=== PATIENT | female | born 1940 | race Caucasian/White ===

== ENCOUNTER 2022-10-22 11:41 | Inpatient (IN) | payer MEDICARE, OTHER ==
[~2022-10-22] VITALS: Ht 170.2 cm; Wt 78.5 kg
[2022-10-22] MEDS ORDERED: CRAN500T PO (12:10)
[2022-10-22] MEDS ORDERED: FAMO40TA71 PO (12:10)
[2022-10-22] MEDS ORDERED: LEVO50TA PO (12:10)
[2022-10-22] MEDS ORDERED: BUPR300T52 PO (12:10)
[2022-10-22] MEDS ORDERED: NORT10CA PO (12:10)
[2022-10-22] MEDS ORDERED: MIRA25TA PO (12:10)
[2022-10-22] MEDS ORDERED: DULO30CA52 PO (12:10)
[2022-10-22 12:41] LABS: HEMATOCRIT 42.2 % (31.2-41.9); MEAN CORPUSCULAR HEMOGLOBIN 30.2 uug (24.7-32.8); MEAN CORPUSCULAR VOLUME 91.5 fL (75.5-95.3); PLATELET COUNT (AUTO) 402 K/uL (179-408)
[2022-10-22 13:09] LABS: CARBON DIOXIDE 28 mmol/L (21-32); CHLORIDE 103 mmol/L (98-107); GLUCOSE 98 mg/dL (74-106); POTASSIUM 4.2 mmol/L (3.5-5.1); UREA NITROGEN, BLOOD 26 mg/dL (7-18)
[2022-10-22 13:14] LABS: ACETAMINOPHEN < 2.0 ug/mL (10-30); ALANINE AMINOTRANSFERASE 17 U/L (14-59); ALKALINE PHOSPHATASE 100 U/L (50-136); ASPARTATE AMINOTRANSFERASE 9 U/L (15-37); BILIRUBIN,DIRECT 0.2 mg/dL (0.0-0.2); BILIRUBIN,TOTAL 0.5 mg/dL (0.2-1.0); TOTAL PROTEIN, SERUM 7.6 g/dL (6.4-8.2)
[2022-10-22 13:15] LABS: ETHANOL < 3 MG/DL (0-0)
[2022-10-22 14:20] LABS: *BILIRUBIN,URIN NEGATIVE (NEGATIVE); *BLOOD, URINE NEGATIVE (NEGATIVE); *CLARITY,URINE CLEAR (CLEAR); *COLOR,URINE YELLOW (YELLOW); *KETONES,URINE NEGATIVE (NEGATIVE); *UROBILINOGEN,URINE 0.2 E.U./dl (NORMAL); LEUKOCYTE ESTERASE ,URINE TRACE (NEGATIVE); NITRITE, URINE NEGATIVE (NEGATIVE); UGLUCOSE NEGATIVE (NEGATIVE)
[2022-10-22 14:31] LABS: *AMPHETAMINE, URINE NEGATIVE (NEGATIVE); *CANNABINOID, URINE NEGATIVE (NEGATIVE); *COCCAINE, URINE NEGATIVE (NEGATIVE); *PHENCYCLIDINE SCREEN,URINE NEGATIVE (NEGATIVE)
--- NOTE | 2022-10-22 16:37 | NUR ---
Called report to [facility]. Going to [address]. Waiting on Covid result before transferring pt.
[2022-10-22 16:45] VITALS: BP 142/77
[2022-10-22] MEDS ORDERED: MAG HYDROX/AL HYDROX/SIMETH 30 ML LIQUID UDC PO PRN (17:30)
[2022-10-22] MEDS ORDERED: LORAZEPAM 1 MG TABLET PO PRN (17:30)
[2022-10-22] MEDS ORDERED: MAGNESIUM HYDROXIDE 30 ML LIQUID UDC PO PRN (17:30)
[2022-10-22] MEDS ORDERED: ZOLPIDEM 5 MG TABLET PO PRN (17:30)
[2022-10-22] MEDS ORDERED: ACETAMINOPHEN 325 MG TABLET PO PRN (17:30)
[2022-10-22 17:50] LABS: BACTERIA,URINE MANY /HPF (NONE SEEN); RBC,URINE NONE SEEN /HPF (0-3); SQUAMOUS EPITHELIAL CELL,UR MANY /HPF (NONE SEEN)
[2022-10-22] MEDS ORDERED: BLOOD SUGAR DIAGNOSTIC 1 EACH STRIP VI ONE (18:00)
--- NOTE | 2022-10-22 18:00 | NUR ---
Admitted a 81 years old female from ER with history of Depression. Patient is on voluntary status. Patient arrived in a wheel chair accompanied by FURNITURE STAINER. Initial report given by Jens ZAMORA. On admission patient was cooperative to physical assessment and vital signs. Skin body assessment revealed no significant skin integrity breakdown. Patient is in Regular Diet. Patient ambulates independently, lower extremities with functional limits, steady gait. Upon face to face, patient is alert to person and place, depressed, sociable, cooperative. Patient denies any suicidal or homicidal ideations nor any hallucinations or delusions. Patient was also offered brief orientation to unit rules and policies and given a copy of patient's rights handbook. Patient belongings were accounted and contrabands removed. Psychiatrist Tonie and Medical physician Mandi were informed and orders were carried out. Patient is currently free from pain or any discomfort. Reassurance given. Fall and safety precautions implemented.
--- NOTE | 2022-10-22 20:30 | NUR ---
RECEIVED PATIENT IN HER ROOM SITTING IN HER BED. SHE IS NOTED A/O X4. SHE IS ABLE TO AMBULATE WITH STEADY GAIT. SHE IS ABLE TO VERBALIZED HER FEELINGS. PATIENT NOTED WITH LOW MOOD AND HER AFFECT IS BLUNTED. SHE IS NOTED PREOCCUPIED, WORRIED AND SOMEWHAT IRRITABLE THAT SHE CAN'T HAVE SOME OF HER STUFF D/T NOT PERMITTED IN THE UNIT FOR SAFETY REASONS. HOWEVER, SHE WAS GIVEN SOME OF HER BOOKS TO READ AND SHE WAS ALLOWED TO WEAR HER OWN NIGHT GOWN. PATIENT STATED, "I AM HERE BECAUSE MY FAMILY IS SAYING THAT I NEED TO HAVE MY MEDICATIONS CHECKS. I WANT TO HAVE MY MEDICATION CHECKS. I FEEL SAD BUT I DON'T FEEL I WANT TO OR HARM MYSELF. I HERE VOICES AND THE VOICES ARE SINGING IN THE BACK OF MY HEAD". PATIENT IS HERE VOLUNTARY. SHE DENIED SI/HI. SHE IS ABLE TO VERBALLY CFS. SHE IS REASSURED FOR HER SAFETY. SAFETY AND FALL PRECAUTIONS ARE IN PLACE. ALL HER NEEDS ARE MET. HER V/S ARE STABLE. SHE WAS GIVEN PO FLUIDS AND SNACKS. WILL CONTINUE TO MONITOR,
[2022-10-22 20:38] VITALS: BP 147/82
--- NOTE | 2022-10-22 21:45 | NUR ---
PATIENT CAME TO THE NURSING STATION AND STARTED DEMANDING FOR HER MEDICATION, "I NEED MY WELLBUTRIN AND CYMBALTA AND ALL MY MEDICATIONS. I TAKE 4 PILLS AT NIGHT". PATIENT WAS EXPLAINED THAT SHE IS HERE TO HAVE HER MEDICATIONS ADJUSTED AND SHE WILL NEED TO WAIT FOR THE MORNING TO BE EVALUATED BY HER PSYCHIATRIC DR OBREGON. SHE BECAME UPSET, THEN SHE WENT INTO HER ROOM AND SHE LAY DOWN ON HER BED AND SHE WAS OBSERVED CRYING. PATIENT WAS REASSURED AND REDIRECTED, SHE WAS ADVISED THAT SHE COULD HAVE A "SLEEPING PILL" TO HELP HER SLEEP FOR TONIGHT AND ATIVAN IF SHE WAS FEELINGS ANXIOUS; SHE REFUSED. WILL CONTINUE TO MONITOR.
[2022-10-23] MEDS: LEVOTHYROXINE SODIUM 50 MCG TABLET PO SCH (06:30)
[2022-10-23 07:27] LABS: BILIRUBIN,TOTAL 0.5 mg/dL (0.2-1.0); CREATININE 1.1 mg/dL (0.6-1.3); POTASSIUM 3.7 mmol/L (3.5-5.1); TOTAL PROTEIN, SERUM 7.4 g/dL (6.4-8.2)
[2022-10-23 07:30] VITALS: BP 167/85
[2022-10-23 08:17] LABS: HEMATOCRIT 42.3 % (31.2-41.9); MEAN CORPUSCULAR HEMOGLOBIN 30.2 uug (24.7-32.8); MEAN CORPUSCULAR VOLUME 91.6 fL (75.5-95.3); PLATELET COUNT (AUTO) 387 K/uL (179-408)
[2022-10-23] MEDS: FAMOTIDINE 20 MG TABLET PO SCH (08:27)
[2022-10-23] MEDS ORDERED: Mirabegron (Myrbetriq) 25 MG) PO SCH (09:00)
[2022-10-23] MEDS ORDERED: CRANBERRY FRUIT 500 MG PO SCH (09:00)
[2022-10-23] MEDS: CEphaleXIN 500 MG CAPSULE PO SCH ×2 (09:39→20:42)
[2022-10-23] MEDS: buPROPion XL 150 MG TAB.SR.24H PO SCH (10:48)
[2022-10-23] MEDS: [UNRECOGNIZED DRUG - OTHER] PO SCH (11:17)
[2022-10-23] MEDS: MYRBETRIQ 25 MG PO SCH (11:17)
--- NOTE | 2022-10-23 12:41 | NUR ---
GIBSON Initial Discharge Note: Pt currently resides at [address] [place] [address] with her , Bill ([phone]). Per pt, her daughter Malinda ([phone]) is also involved in her care. Pt would like to return home with her , Bill upon discharge. GIBSON will continue to work with pt, family and MD to ensure a safe and proper discharge plan.
--- NOTE | 2022-10-23 14:27 | NUR ---
GIBSON Family Contact: GIBSON spoke with pt's daughter Malinda ([phone]) regarding pt's discharge plan. Malinda stated pt does not have a DPOA or conservator. Malinda stated she is equally involved in the pt's care. Malinda informed this press writer that pt's Bill cannot drive.SW will continue to stay in contact. Malinda is agreeable with the current discharge and treatment plan.
[2022-10-23 16:00] VITALS: BP 135/69
--- NOTE | 2022-10-23 16:00 | NUR ---
Received patient awake in her room. A/O X 3 to person, place. Patient is argumentative, anxious and preoccupied at times, having outbursts when her demands are not met, frustrated, short temper. Active listening provided. Fall and safety precautions implemented.
[2022-10-23 20:33] VITALS: BP 168/83
[2022-10-23] MEDS: NORTRIPTYLINE HCL 10 MG CAPSULE PO SCH (20:42)
--- NOTE | 2022-10-23 21:30 | NUR ---
RECEIVED PATIENT IN HER ROOM SITTING IN HER BED. SHE IS NOTED GOING THROUGH HER PAPERS. SHE IS A/O X3. SHE IS NOTED ANXIOUS, IRRITABLE AND UPSET. SHE IS SARCASTIC. SHE STATED, "I DID NOT SEE ANY DOCTOR TODAY. I HAVE BEEN HERE 3 DAYS AND I HAVEN'T DONE ANYTHING". PATIENT WAS ORIENTED TO REALITY. SHE WAS EXPLAINED THAT SHE HAS ONLY BEEN HERE ONE DAY AND THAT SHE HAS SEEN BOTH OF HER DOCTORS. PATIENT WAS ALLOWED TO VERBALIZED ALL HER FEELINGS. SHE DENIED SI/HI//AH. SHE IS ABLE TO CFS. HER 2000 V/S ARE STABLE. SBP IS A BIT ELEVATED AT 168. PATIENT NOTED ANXIOUS, BUT AFTER GIVEN ALL HER QHS MEDICATIONS AND REDIRECTIONS AND REASSURANCE. SHE WAS ABLE TO CALM DOWN. B/P WAS RECHECKED AT 2130 AND IT IS 150/86 AND PULSE 84. PATIENT IN NO DISTRESS. SHE WAS ALSO GIVEN PO FLUIDS AND SNACKS. SHE IS REASSURED FOR HER SAFETY. SAFETY AND FALL PRECAUTIONS ARE IN PLACE. SHE WAS SEEN HAVING A PLEASANT CONVERSATIONS WITH ROOMMATE. WILL CONTINUE TO MONITOR,
[2022-10-23 21:32] VITALS: BP 150/86
[2022-10-24] MEDS: LEVOTHYROXINE SODIUM 50 MCG TABLET PO SCH (06:51)
[2022-10-24 08:03] VITALS: BP 150/91
[2022-10-24] MEDS: FAMOTIDINE 20 MG TABLET PO SCH (09:08)
[2022-10-24] MEDS: CEphaleXIN 500 MG CAPSULE PO SCH ×2 (09:08→20:17)
[2022-10-24] MEDS: buPROPion XL 150 MG TAB.SR.24H PO SCH (09:08)
[2022-10-24] MEDS: MYRBETRIQ 25 MG PO SCH (09:10)
[2022-10-24] MEDS: [UNRECOGNIZED DRUG - OTHER] PO SCH (09:10)
[2022-10-24] MEDS: AMLODIPINE 2.5 MG TABLET PO SCH (12:04)
[2022-10-24 16:09] VITALS: BP 158/91
--- NOTE | 2022-10-24 16:26 | NUR ---
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 Pt is A/O X4 ambulatory and self care.Pt is compliant with medications and nursing care. Pt does not participate in group activities. continue to monitor for safety , continue with treatment plan.
[2022-10-24 20:00] VITALS: BP 166/82
[2022-10-24] MEDS: NORTRIPTYLINE HCL 10 MG CAPSULE PO SCH (20:16)
--- NOTE | 2022-10-25 04:55 | NUR ---
GPS NOTES: Patient is A&Ox2, she is pleasant, calm and cooperative. She is ambulatory and self care. Able to make needs known, on ATB d/t UTI. Patient denies SI, VH/AH. She makes meaningful conversation, talks about her job and her experiences. She is med compliant. No distress noted. Slept uninterrupted this shift. All safety measures in placed.
[2022-10-25] MEDS: LEVOTHYROXINE SODIUM 50 MCG TABLET PO SCH (06:11)
[2022-10-25] MEDS: FAMOTIDINE 20 MG TABLET PO SCH (08:34)
[2022-10-25] MEDS: buPROPion XL 150 MG TAB.SR.24H PO SCH (08:34)
[2022-10-25] MEDS: AMLODIPINE 2.5 MG TABLET PO SCH ×2 (08:38→08:44)
[2022-10-25] MEDS: CEphaleXIN 500 MG CAPSULE PO SCH ×2 (08:38→20:36)
[2022-10-25] MEDS: [UNRECOGNIZED DRUG - OTHER] PO SCH (08:40)
[2022-10-25] MEDS: MYRBETRIQ 25 MG PO SCH (08:40)
[2022-10-25 09:04] VITALS: BP 150/91
[2022-10-25 15:22] VITALS: BP 149/90
--- NOTE | 2022-10-25 15:35 | NUR ---
Received patient is alert and oriented x3, compliant with medication easy to get irritable and augmentative with her BP medication ,refused Norvasc until she spoke with catering operations manager.encouraged to attend in group activity , patient with poor insight and impair impulse control ,will continue close monitoring.
[2022-10-25 20:04] VITALS: BP 157/78
[2022-10-25] MEDS: NORTRIPTYLINE HCL 10 MG CAPSULE PO SCH (20:36)
--- NOTE | 2022-10-26 01:50 | NUR ---
Patient was somewhat suspicious and particular about her medications. Seeming reluctant, pt had to be educated of their purpose and frequency.
[2022-10-26] MEDS: LEVOTHYROXINE SODIUM 50 MCG TABLET PO SCH (06:04)
[2022-10-26 07:42] VITALS: BP 159/76
[2022-10-26] MEDS: FAMOTIDINE 20 MG TABLET PO SCH (08:40)
[2022-10-26] MEDS: buPROPion XL 150 MG TAB.SR.24H PO SCH (08:40)
[2022-10-26] MEDS: CEphaleXIN 500 MG CAPSULE PO SCH ×2 (08:41→20:11)
[2022-10-26] MEDS: AMLODIPINE 2.5 MG TABLET PO SCH (08:41)
[2022-10-26] MEDS ORDERED: [UNRECOGNIZED DRUG - OTHER] PO SCH (09:00)
[2022-10-26] MEDS ORDERED: MYRBETRIQ 25 MG PO SCH (09:00)
--- NOTE | 2022-10-26 15:50 | NUR ---
patient is more cooperative with nursing care and took shower, compliant with all medication ,denies any pain or discomfort. still with poor insight and impair judgement .
[2022-10-26] MEDS: NORTRIPTYLINE HCL 10 MG CAPSULE PO SCH (20:10)
[2022-10-26 20:15] VITALS: BP 144/70
[2022-10-27] MEDS: LEVOTHYROXINE SODIUM 50 MCG TABLET PO SCH (06:45)
[2022-10-27 07:50] VITALS: BP_SYST 109; BP_SYST 110; BP_DIAS 71; BP_DIAS 73
[2022-10-27] MEDS: buPROPion XL 150 MG TAB.SR.24H PO SCH (08:39)
[2022-10-27] MEDS: FAMOTIDINE 20 MG TABLET PO SCH (08:40)
[2022-10-27] MEDS: CEphaleXIN 500 MG CAPSULE PO SCH (08:41)
[2022-10-27] MEDS: AMLODIPINE 2.5 MG TABLET PO SCH (08:43)
[2022-10-27] MEDS: ARIPIPRAZOLE 2 MG TABLET PO SCH (08:47)
[2022-10-27 15:21] VITALS: BP 158/90
--- NOTE | 2022-10-27 16:02 | NUR ---
Received patient sleeping in her room. Patient is sociable, demanding, compliant with medications, cooperative, needy. Patient is A/O X 4 to person, place, situation. Patient requires minimal assistance with ADL. Patient is encourage to verbalize feelings and emotions. Fall and safety precautions implemented.
[2022-10-27] MEDS: NITROFURANTOIN/NITROFURAN MAC 100 MG CAPSULE PO SCH (20:52)
[2022-10-27] MEDS: NORTRIPTYLINE HCL 10 MG CAPSULE PO SCH (20:52)
[2022-10-27 21:45] VITALS: BP 162/80
--- NOTE | 2022-10-28 02:01 | NUR ---
Pt is AOx3, compliant, and understands the importance of her medications and her POC. Overall compliant. Goal oriented. Safety measures carried out this shift.
[2022-10-28] MEDS: LEVOTHYROXINE SODIUM 50 MCG TABLET PO SCH (06:25)
[2022-10-28 07:30] VITALS: BP 176/93
[2022-10-28] MEDS: ARIPIPRAZOLE 2 MG TABLET PO SCH (08:24)
[2022-10-28] MEDS: NITROFURANTOIN/NITROFURAN MAC 100 MG CAPSULE PO SCH ×2 (08:24→20:36)
[2022-10-28] MEDS: buPROPion XL 150 MG TAB.SR.24H PO SCH (08:25)
[2022-10-28] MEDS: FAMOTIDINE 20 MG TABLET PO SCH (08:25)
[2022-10-28] MEDS: AMLODIPINE 2.5 MG TABLET PO SCH (08:25)
[2022-10-28 16:00] VITALS: BP 142/58
--- NOTE | 2022-10-28 16:20 | NUR ---
Patient is cooperative with nursing care, compliant with medications, anxious and impatient at times, preoccupied, selective with medications. Patient is A/O X 3 to person, place, situation. Patient requires minimal assistance with ADL. Patient is encourage to vent feelings and emotions. Fall and safety precautions implemented.
[2022-10-28] MEDS: NORTRIPTYLINE HCL 10 MG CAPSULE PO SCH (20:36)
[2022-10-28 20:54] VITALS: BP 174/88
--- NOTE | 2022-10-28 21:32 | NUR ---
GPS: Pt.is anxious,needy at times. Able to make needs known but forgetful. Re-directed and re-assured prn. Med.compliant. Denies pain. Safe environment provided. Denies wanting to harm self. Will continue to monitor.
[2022-10-29] MEDS: LEVOTHYROXINE SODIUM 50 MCG TABLET PO SCH (06:32)
[2022-10-29 07:30] VITALS: BP 166/86
[2022-10-29] MEDS: NITROFURANTOIN/NITROFURAN MAC 100 MG CAPSULE PO SCH ×2 (08:54→20:21)
[2022-10-29] MEDS: ARIPIPRAZOLE 2 MG TABLET PO SCH (08:54)
[2022-10-29] MEDS: AMLODIPINE 2.5 MG TABLET PO SCH (08:55)
[2022-10-29] MEDS: FAMOTIDINE 20 MG TABLET PO SCH (08:55)
[2022-10-29] MEDS: buPROPion XL 150 MG TAB.SR.24H PO SCH (08:56)
[2022-10-29 16:00] VITALS: BP 158/82
--- NOTE | 2022-10-29 16:14 | NUR ---
Received Pt in room awake, Pt is anxious and needy at times.Pt can be easily irritable, Able to make needs known but forgetful. Pt is Medication compliant.Pt Denies pain. Safe environment provided. Denies SI. continue to monitor For safety, continue with treatment plan.
[2022-10-29] MEDS: NORTRIPTYLINE HCL 10 MG CAPSULE PO SCH (20:21)
[2022-10-29 20:54] VITALS: BP 169/90
[2022-10-30] MEDS: LEVOTHYROXINE SODIUM 50 MCG TABLET PO SCH (06:22)
[2022-10-30 07:30] VITALS: BP 155/88
[2022-10-30] MEDS ORDERED: ARIPIPRAZOLE 2 MG TABLET PO SCH (09:00)
[2022-10-30] MEDS: buPROPion XL 150 MG TAB.SR.24H PO SCH (10:14)
[2022-10-30] MEDS: ARIPIPRAZOLE 5 MG TABLET PO SCH (10:14)
[2022-10-30] MEDS: AMLODIPINE 2.5 MG TABLET PO SCH (10:15)
[2022-10-30] MEDS: FAMOTIDINE 20 MG TABLET PO SCH (10:15)
[2022-10-30] MEDS: NITROFURANTOIN/NITROFURAN MAC 100 MG CAPSULE PO SCH ×2 (10:20→20:07)
[2022-10-30 16:00] VITALS: BP 155/70
--- NOTE | 2022-10-30 19:11 | NUR ---
pt is awake for the most of the shift. Pt is ambulatory, A/Ox2-3. Pt is compliant with medications.
[2022-10-30] MEDS: NORTRIPTYLINE HCL 10 MG CAPSULE PO SCH (20:08)
[2022-10-30 20:10] VITALS: BP 161/78
--- NOTE | 2022-10-30 20:53 | NUR ---
GPS: Remains anxious at times but re-directable. Re-assured prn. Med.compliant. Denies AH/VH. No plan to harm self verbalized. Safe environment provided. Fluids encouraged. No adverse reactions noted from atb. Denies cough at this time. Afebrile.
[2022-10-31] MEDS: LEVOTHYROXINE SODIUM 50 MCG TABLET PO SCH (06:24)
[2022-10-31] MEDS: NITROFURANTOIN/NITROFURAN MAC 100 MG CAPSULE PO SCH ×2 (08:24→20:42)
[2022-10-31] MEDS: ARIPIPRAZOLE 5 MG TABLET PO SCH (08:24)
[2022-10-31] MEDS: buPROPion XL 150 MG TAB.SR.24H PO SCH (08:26)
[2022-10-31] MEDS: FAMOTIDINE 20 MG TABLET PO SCH (08:26)
[2022-10-31] MEDS: AMLODIPINE 5 MG TABLET PO SCH (09:08)
[2022-10-31] MEDS ORDERED: ESTRADIOL 0.01% VG SCH (12:00)
[2022-10-31 16:38] VITALS: BP 169/83
--- NOTE | 2022-10-31 16:44 | NUR ---
GPS: Nursing Notes: Mood Disturbance: Depression: Patient is awake and responding to her name, cooperative with nursing care, compliant with her medications, participating in therapeutic groups, depressed mood and blunted affect, forgetful at times, unable to formulate a viable plan for self care, interactive with peers, needs prompting to be compliant with her ADL's, continue to monitor for safety, continue with treatment plan.
[2022-10-31 20:00] VITALS: BP 143/59
[2022-10-31] MEDS: NORTRIPTYLINE HCL 10 MG CAPSULE PO SCH (20:42)
[2022-10-31] MEDS: BENZOCAINE/MENTH/CETYLPYRD LOZENGE MM PRN (20:42)
[2022-10-31] MEDS: ESTRADIOL 0.01% VG SCH (20:44)
--- NOTE | 2022-11-01 04:59 | NUR ---
Received patient at the start of the shift, needy, angry and demanding. The patient was increasingly confused as the night progressed. Reorientation, reassurance and assistance provided as needed throughout the night. Safety Stratiges remain in place. No acute distress noted at this time.
[2022-11-01] MEDS: LEVOTHYROXINE SODIUM 50 MCG TABLET PO SCH (06:18)
[2022-11-01 07:57] VITALS: BP 142/78
[2022-11-01] MEDS: ARIPIPRAZOLE 5 MG TABLET PO SCH (08:38)
[2022-11-01] MEDS: FAMOTIDINE 20 MG TABLET PO SCH (08:38)
[2022-11-01] MEDS: NITROFURANTOIN/NITROFURAN MAC 100 MG CAPSULE PO SCH (08:38)
[2022-11-01] MEDS: buPROPion XL 150 MG TAB.SR.24H PO SCH (08:38)
[2022-11-01] MEDS: AMLODIPINE 5 MG TABLET PO SCH (08:39)
--- NOTE | 2022-11-01 14:06 | NUR ---
GPS: Nursing Notes: Mood Disturbance: Depression: Patient is awake and responding to her name, compliant with her medications, needy at times, needs prompting to participate in therapeutic groups, cooperative with nursing care, depressed mood and blunted affect, believes that she is getting better, argumentative at times, unable to formulate a viable plan for self care, continue to monitor for safety, continue with treatment plan.
[2022-11-01 16:38] VITALS: BP 168/93
[2022-11-01 20:04] VITALS: BP 168/78
[2022-11-01] MEDS: NORTRIPTYLINE HCL 10 MG CAPSULE PO SCH (20:33)
[2022-11-02] MEDS: LEVOTHYROXINE SODIUM 50 MCG TABLET PO SCH (06:28)
[2022-11-02 07:47] VITALS: BP 168/89
[2022-11-02] MEDS: FAMOTIDINE 20 MG TABLET PO SCH (08:35)
[2022-11-02] MEDS: buPROPion XL 150 MG TAB.SR.24H PO SCH (08:35)
[2022-11-02] MEDS: ARIPIPRAZOLE 5 MG TABLET PO SCH (08:35)
[2022-11-02] MEDS: AMLODIPINE 5 MG TABLET PO SCH (08:35)
--- NOTE | 2022-11-02 13:38 | NUR ---
GPS: Nursing Notes: Mood Disturbance: Depression: Patient is awake and responding to her name, depressed mood and anxious affect, needy, argumentative at times, needs prompting to participate in therapeutic groups, cooperative with nursing care, isolative at times, unable to formulate a viable plan for self care, continue to monitor for safety, continue with treatment plan.
--- NOTE | 2022-11-02 16:00 | NUR ---
GIBSON Family Contact/Discharge Update: GIBSON spoke with pt's daughter Malinda ([phone]) who confirmed pt's discharge transportation to home with family on Wednesday, November 07, 2022 between 2 and 3PM via private vehicle.
[2022-11-02 16:28] VITALS: BP 141/78
[2022-11-02 20:18] VITALS: BP 133/64
[2022-11-02] MEDS: NORTRIPTYLINE HCL 10 MG CAPSULE PO SCH (20:27)
[2022-11-02] MEDS: ESTRADIOL 0.01% VG SCH (20:28)
--- NOTE | 2022-11-03 04:41 | NUR ---
Patient is A&Ox2, she is pleasant, calm and cooperative. She is ambulatory and self care. Able to make needs known. Patient denies SI, VH/AH. She makes meaningful conversation, talks about her job and her experiences. She is med compliant. No distress noted. Slept uninterrupted this shift. All safety measures in placed.
[2022-11-03] MEDS: LEVOTHYROXINE SODIUM 50 MCG TABLET PO SCH (06:03)
[2022-11-03 07:30] VITALS: BP 152/73
[2022-11-03] MEDS: ARIPIPRAZOLE 5 MG TABLET PO SCH (08:11)
[2022-11-03] MEDS: FAMOTIDINE 20 MG TABLET PO SCH (08:11)
[2022-11-03] MEDS: buPROPion XL 150 MG TAB.SR.24H PO SCH (08:11)
[2022-11-03] MEDS: AMLODIPINE 5 MG TABLET PO SCH (08:11)
--- NOTE | 2022-11-03 12:35 | NUR ---
GPS: Nursing Notes: Mood Disturbance: Depression: Patient is awake and responding to her name, needs prompting to participate in therapeutic groups, A/Ox3, cooperative with nursing care, depressed mood and brighter affect, forgetful at times, argumentative at times, denies SI/HI, compliant with her medications, demanding at times, continue to monitor for safety, verbally lila for safety, continue with treatment plan.
[2022-11-03 16:00] VITALS: BP 141/69
[2022-11-03] MEDS: NORTRIPTYLINE HCL 10 MG CAPSULE PO SCH (20:13)
[2022-11-03 20:25] VITALS: BP 143/71
[2022-11-04] MEDS: LEVOTHYROXINE SODIUM 50 MCG TABLET PO SCH (06:09)
[2022-11-04 07:30] VITALS: BP 168/78
[2022-11-04] MEDS: ARIPIPRAZOLE 5 MG TABLET PO SCH (08:18)
[2022-11-04] MEDS: FAMOTIDINE 20 MG TABLET PO SCH (08:19)
[2022-11-04] MEDS: buPROPion XL 150 MG TAB.SR.24H PO SCH (08:20)
[2022-11-04] MEDS: AMLODIPINE 5 MG TABLET PO SCH (08:20)
[2022-11-04 10:09] VITALS: BP 116/54
--- NOTE | 2022-11-04 10:59 | NUR ---
This morning Pt has high BP of 168/78 .Pt took all medications including Norvasc for Blood pressure. Re checked Bp and it is 116/54.
[2022-11-04] MEDS: diphenhydrAMINE 25 MG CAP PO PRN ×2 (12:25→18:36)
--- NOTE | 2022-11-04 15:40 | NUR ---
Received Pt in room sitting,pleasant, calm, labile can be easily irritated when things are not done her way.Pt is medication compliant, self care ambulator , A/O X4. Pt participates in group activities and interacts with peers and staff.Continue to monitor for safety, continue with treatment plan.
[2022-11-04 16:00] VITALS: BP 136/80
[2022-11-04 20:17] VITALS: BP 148/68
[2022-11-04] MEDS: NORTRIPTYLINE HCL 10 MG CAPSULE PO SCH (20:28)
[2022-11-04] MEDS: ESTRADIOL 0.01% VG SCH (20:31)
[2022-11-05] MEDS: LEVOTHYROXINE SODIUM 50 MCG TABLET PO SCH (06:17)
[2022-11-05 07:51] VITALS: BP 132/78
[2022-11-05] MEDS: FAMOTIDINE 20 MG TABLET PO SCH (08:39)
[2022-11-05] MEDS: buPROPion XL 150 MG TAB.SR.24H PO SCH (08:39)
[2022-11-05] MEDS: ARIPIPRAZOLE 5 MG TABLET PO SCH (08:41)
[2022-11-05] MEDS: AMLODIPINE 5 MG TABLET PO SCH (08:41)
--- NOTE | 2022-11-05 13:00 | NUR ---
Nursing- Daughter came by to visit, noted left boxes of sees chocolate at patient's bedside, w/o letting the staff know. Informed patient we cant leave those boxes of chocolate at her bedside, informed patient they need to be put in her locker, and when she's ready to leave , staff will return back to her, patient verbalized understanding. Patient attended group tx, interacting fairly well with her roommate . denies any discomfort. Forgetful, needed redirections from time to time.
[2022-11-05 15:11] VITALS: BP 145/72
[2022-11-05 20:04] VITALS: BP 140/65
[2022-11-05] MEDS: NORTRIPTYLINE HCL 10 MG CAPSULE PO SCH (20:35)
[2022-11-05] MEDS: BENZOCAINE/MENTH/CETYLPYRD LOZENGE MM PRN (22:40)
--- NOTE | 2022-11-06 01:58 | NUR ---
Patient was confused and forgetful during the start of the shift. The patient was worried that she " lost her earrings," which were found. Then " misplaced her hearing aids," which were also found and put in her locker for safety. The patient insisted on giving a box of See's candy, from out of her locker to the staff. This patient had trouble going to sleep, but refused PRN medications. Reorientation and reassurance ongoing. The patient was paranoid earlier in the shift because another patient was telling her things that " were going on " that were delusional but convincing . Safety Stratiges are in place . No acute distress at this time.
[2022-11-06] MEDS: LEVOTHYROXINE SODIUM 50 MCG TABLET PO SCH (06:09)
[2022-11-06 07:30] VITALS: BP_SYST 148; BP_DIAS 80; BP_DIAS 95
[2022-11-06] MEDS: ARIPIPRAZOLE 5 MG TABLET PO SCH (09:01)
[2022-11-06] MEDS: buPROPion XL 150 MG TAB.SR.24H PO SCH (09:01)
[2022-11-06] MEDS: FAMOTIDINE 20 MG TABLET PO SCH (09:01)
[2022-11-06] MEDS: AMLODIPINE 5 MG TABLET PO SCH (09:02)
--- NOTE | 2022-11-06 12:10 | NUR ---
Nursing- Patient kept requesting to have her bilateral hearing aids, claimed she cant wait, noted patient gets irritable , when needs or request note met right away.
--- NOTE | 2022-11-06 15:29 | NUR ---
Gps/Ticket Worker- Per patient looking forward to going home. Attends and participates in her group therapy. Still observed episodes of irritability when request not met right away , impulse to grabs belongings , does not want to wait, per patient she does not have patience.
--- NOTE | 2022-11-06 15:41 | NUR ---
GIBSON Family Contact/Discharge Update: GIBSON spoke with pt's daughter Malinda ([phone]) who confirmed providing private vehicle transportation for the pt on Wednesday, November 07, 2022 between 2 and 3PM.
[2022-11-06 16:00] VITALS: BP 159/75
--- NOTE | 2022-11-06 16:07 | NUR ---
Nursing- Spoked with gaby Petty, requesting to have prescriptions be called in, or faxed to [facility] in [address] Muse. faxed # [phone] .(was done) Gaby Petty was informed will still need to call in RX from the Medical/International Account Manager in am. or as soon as staff obtained prescription .
[2022-11-06 19:49] VITALS: BP 149/72
[2022-11-06] MEDS: ESTRADIOL 0.01% VG SCH (20:45)
[2022-11-06] MEDS: NORTRIPTYLINE HCL 10 MG CAPSULE PO SCH (20:45)
[2022-11-07] MEDS: LEVOTHYROXINE SODIUM 50 MCG TABLET PO SCH (06:47)
[2022-11-07 07:52] VITALS: BP 187/93
[2022-11-07] MEDS: FAMOTIDINE 20 MG TABLET PO SCH (08:43)
[2022-11-07] MEDS: ARIPIPRAZOLE 5 MG TABLET PO SCH (08:43)
[2022-11-07] MEDS: buPROPion XL 150 MG TAB.SR.24H PO SCH (08:46)
[2022-11-07 08:54] VITALS: BP 184/93
[2022-11-07] MEDS: AMLODIPINE 5 MG TABLET PO SCH (08:54)
--- NOTE | 2022-11-07 10:49 | NUR ---
Nursing- Juan Paul AUXILIARY EQUIPMENT TENDER, in to see patient, informed of her discharged plan this pm, prescriptions faxed to [facility] in [place] .Patient was also well informed of her discharged plan, patient looking forward to going home to her . Per Senior Interactive Developer daughter Malinda, will be providing transportation between 1400 -1500 pickle pumper time
--- NOTE | 2022-11-07 14:00 | NUR ---
Nursing- Daughter Malinda in to brain picker patient, reviewed discharged instructions, , medications/prescriptions, diet, safety, follow up with her Psychiatrist as well as her Psychologist, skin care, both patient and daughter verbalized understanding. All belongings and valuable given back to patient, patients' own medications returned back to patient. Discharged via private car accompanied by her daughter Malinda, no distress, no new complaints noted, patient in good spirit
== END 2022-11-07 14:00 | disposition home or self-care (01) | DRG 885 ==
LOC: ER 11:41 → GPS 16:45
PROVIDERS: ADMIT Psychiatry & Neurology Psychiatry; ATTEND Internal Medicine
DX: F33.3 Major depressive disorder, recurrent, severe with psychotic symptoms (principal); N39.0 Urinary tract infection, site not specified; E03.9 Hypothyroidism, unspecified; Z68.26 Body mass index [BMI] 26.0-26.9, adult; F41.9 Anxiety disorder, unspecified; I10 Essential (primary) hypertension; K21.9 Gastro-esophageal reflux disease without esophagitis; B96.1 Klebsiella pneumoniae [K. pneumoniae] as the cause of diseases classified elsewhere; F29 Unspecified psychosis not due to a substance or known physiological condition; Z73.6 Limitation of activities due to disability; M62.81 Muscle weakness (generalized); Z20.822 Contact with and (suspected) exposure to COVID-19; F60.9 Personality disorder, unspecified; L50.9 Urticaria, unspecified
CPT/HCPCS: 36415; 84443; 84481; 85025; 93005; A4663; G0480; Q0163